=== PATIENT | female | born 1990 | race African-American/Black ===

== ENCOUNTER 2017-04-18 22:27 | Emergency (ER) | payer SELFPAY ==
[~2017-04-18] VITALS: Ht 162.6 cm; Wt 59.0 kg
--- NOTE | 2017-04-18 22:40 | NUR ---
BB RA AND [employer] FROM HOME FOR MEDICAL CLEARANCE, JUHI INGRAM. PER EMS, PT WANTED TO HURT HERSELF. PT DENIES SI/HI. PT STATES "I AM ASHAMED OF MYSELF, BUT I DO NOT WANT TO HURT MYSELF OR OTHERS." PT AAOX4. RESP EVEN AND UNLABORED. SKIN WNL AND WARM, NO S/S OF ACUTE DISTRESS NOTED. PT STATES SHE HAS BEEN CUTTING HERSELF SINCE THE AGE OF 12. PTS BELONGINGS REMOVED AND PT SAFETY AND COMFORT MEASURES IN PLACE. AWAITING MD FOR EVAL.
[2017-04-18] MEDS ORDERED: TDAP [DIPH/PERTUSSIS/TET] 0.5 ML VIAL IM ONE ×2 (23:00→23:09)
--- NOTE | 2017-04-18 23:14 | NUR ---
[facility] [employer] ADMINISTERED L DELTOID IM, WELL TOLERATED. PT RESTING IN BED TALKING ON CELLPHONE
--- NOTE | 2017-04-18 23:19 | NUR ---
Patient discharged to home in stable condition. Written and verbal after care instructions given. Patient verbalizes understanding of instruction. VSS upon discharge. Pt ambulated with steady gait to waiting room to arrange for a ride back home.
[2017-04-18 23:40] VITALS: BP 139/76
== END 2017-04-18 23:43 | disposition home or self-care (01) ==
LOC: ER 22:29
DX: Z13.89 Encounter for screening for other disorder (principal); S61.532A Puncture wound without foreign body of left wrist, initial encounter; X78.0XXA Intentional self-harm by sharp glass, initial encounter; Y93.89 Activity, other specified; Y92.89 Other specified places as the place of occurrence of the external cause; Y99.8 Other external cause status
CPT/HCPCS: 90471; 90715; 99283; A4606; A6402; Z7610